=== PATIENT | male | born 1990 | race Hispanic/Latino ===

== ENCOUNTER 2016-08-13 21:15 | Emergency (ER) | payer OTHER ==
[~2016-08-13] VITALS: Ht 180.3 cm; Wt 68.2 kg
[2016-08-13 21:18] VITALS: BP 135/78; PULSE 100; RESP 16; O2SAT 100
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
[2016-08-13] MEDS ORDERED: Ondansetron 8 mg ODT Tablet PO ONE (22:40)
[2016-08-13 23:34] VITALS: BP 134/73; PULSE 90; RESP 16; O2SAT 99
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
== END 2016-08-13 23:33 | disposition home or self-care (01) ==
LOC: SED 21:15
DX: S00.83XA Contusion of other part of head, initial encounter (principal); Y04.8XXA Assault by other bodily force, initial encounter; Y92.830 Public park as the place of occurrence of the external cause; Y93.89 Activity, other specified; Y99.8 Other external cause status; M54.2 Cervicalgia; R11.2 Nausea with vomiting, unspecified; R22.0 Localized swelling, mass and lump, head

== ENCOUNTER 2016-08-15 21:21 | Emergency (ER) | payer OTHER ==
[~2016-08-15] VITALS: Ht 180.3 cm; Wt 68.2 kg
[2016-08-15 21:31] VITALS: BP 112/68; PULSE 65; RESP 16; O2SAT 100
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
[2016-08-15] MEDS ORDERED: Ondansetron 2 mg/mL 2 mL Inj IVPUSH ONE (22:15)
[2016-08-15] MEDS ORDERED: 0.9% Sodium Chloride 1,000 ML IV SCH (22:15)
[2016-08-15 22:43] LABS: BASOPHILS % (AUTO) 0.2 % (0-3); EOSINOPHILS % (AUTO) 0.3 % (0-5); MONOCYTES % (AUTO) 10.9 % (4-12); Mean Corpuscular Hemoglobin 30.3 pg (27.0-35.0); Mean Corpuscular Volume 86.4 fL (81-100); NEUTROPHILS % (AUTO) 71.7 % (40-74); Platelet Count 278 bil/L (150-400)
[2016-08-16] MEDS ORDERED: Ondansetron 2 mg/mL 2 mL Inj IVPUSH ONE (00:25)
[2016-08-16] MEDS ORDERED: _Ondansetron ODT 4 mg Tablet PO PRN (01:40)
[2016-08-16] MEDS ORDERED: PROM25SU46 RC (02:02)
[2016-08-16 02:24] VITALS: BP 127/69; PULSE 61; RESP 16; O2SAT 100
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
== END 2016-08-16 02:21 | disposition home or self-care (01) ==
LOC: SED 21:21
DX: F07.81 Postconcussional syndrome (principal); S00.83XA Contusion of other part of head, initial encounter; Y04.8XXA Assault by other bodily force, initial encounter; Y92.9 Unspecified place or not applicable; Y93.89 Activity, other specified; Y99.8 Other external cause status; R11.2 Nausea with vomiting, unspecified
CPT/HCPCS: 36415; 70450; 85025; 96361; 96374; 96376; 99285; J2405; J7030

== ENCOUNTER 2016-12-09 18:11 | Emergency (ER) | payer OTHER ==
[~2016-12-09 18:11] MED LIST: PROM25SU46 RC
[2016-12-09 18:25] VITALS: BP 110/62; PULSE 66; RESP 14; O2SAT 99
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
[2016-12-09 20:51] VITALS: BP 108/72; PULSE 74; RESP 14; O2SAT 97
== END 2016-12-09 20:57 | disposition home or self-care (01) ==
LOC: SED 18:11
DX: S60.041A Contusion of right ring finger without damage to nail, initial encounter (principal); W22.8XXA Striking against or struck by other objects, initial encounter; Y93.89 Activity, other specified; Y92.89 Other specified places as the place of occurrence of the external cause; Y99.8 Other external cause status